=== PATIENT | female | born 1980 | race Caucasian/White ===

== ENCOUNTER → 2018-06-07 | Outpatient (CLI) | payer BC | LOC: RAD 14:13 | DX: N63.21 Unspecified lump in the left breast, upper outer quadrant (principal); R92.2 Inconclusive mammogram ==

== ENCOUNTER → 2018-06-21 | Outpatient (CLI) | payer BC ==
--- NOTE | ~2018-06-21 | PATH ---
[facility] [address] [place] [address] PATHOLOGY RPT PROCEDURE Name: JACQUE ROMERO Fortunato Room #: [id number] Admission: 06/21/18 Date of : 78 Discharge: Report #: [id number] Path Case #: [id number] [facility] Accession Number: [id number] . 01 Material submitted: . LT BREAST MASS 11:00, 2 CM . 01 Clinical history: . LT mass . 02 Diagnosis: Breast, left breast mass 11:00 2 cm, needle core biopsy: - Fibroadenoma. - Negative for atypia or malignancy. (IUV:pierre; 06/24/2018) QMS/06/24/2018 . 02 Comment: Dr. J Luis Jaeger has reviewed order entry representative slides and concurs with my diagnosis. (IUV:pierre; 06/24/2018) . 02 Electronically signed: . Radah Shanks MD, Pathologist NPI- [id number] . 01 Gross description: . The specimen is received in formalin, labeled "Jacque Romero, left breast 11:00 2 cm" and consists of 14 year cores of yellow-treviño tissue measuring between 0.8 cm and 2.0 cm in length and 0.3-0.4 cm in diameter. They are entirely submitted in A1-A3. The cold ischemic time is 5 minutes and the total formalin fixation time is greater than 6 hours but less than 72 hours. (SDY; 06/21/2018) SYU/SYU . 02 Pathologist provided ICD-10: D24.2 . 02 CPT . 403676 Specimen Comment: A courtesy copy of this report has been sent to Specimen Comment: [phone]. Specimen Comment: Report sent to Performed at: [address], [place] [id number] [place] [address] [email or web address] [address] PATHOLOGY RPT PROCEDURE Name: JACQUE ROMERO Room #: REG CL Lona#: [id number] Admission: 06/21/18 Date of : 78 Discharge: Report #: [id number] Path Case #: [id number] MD Satish Dasilva MD Phone: [phone] Performed at: 02 [facility] [address] [place], [place] [id number] MD Radha Shanks MD Phone: [phone]
== END | disposition home or self-care (01) ==
LOC: RAD 01:17 → ULTRA 01:17 → RAD 09:25
DX: D24.2 Benign neoplasm of left breast (principal); N63.21 Unspecified lump in the left breast, upper outer quadrant